=== PATIENT | female | born 2000 | race Asian ===

== ENCOUNTER 2025-01-27 11:23 | Emergency (ER) | payer OTHER ==
[~2025-01-27] VITALS: Ht 160 cm; Wt 59.0 kg
[2025-01-27 11:45] VITALS: TEMP 100.8
[2025-01-27 11:58] LABS: COVID AG,FIA SOURCE NASAL SWAB
[2025-01-27 12:22] LABS: SARS-COV2 (COVID) ANTIGEN,FIA Negative (Negative)
[2025-01-27 12:23] LABS: INFLUENZA TYPE A NEGATIVE FOR TYPE A (NEGATIVE); INFLUENZA TYPE B NEGATIVE FOR TYPE B (NEGATIVE)
[2025-01-27] MEDS ORDERED: AMOX500C2 PO (14:14)
[2025-01-27 14:15] VITALS: BP 117/81; PULSE 97; RESP 18; O2SAT 99
== END 2025-01-27 14:21 | disposition home or self-care (01) ==
LOC: EMS 11:28
DX: H66.91 Otitis media, unspecified, right ear (principal); J06.9 Acute upper respiratory infection, unspecified; Z20.822 Contact with and (suspected) exposure to COVID-19
CPT/HCPCS: 71045; 87804; 99284